=== PATIENT | male | born 1980 | race Caucasian/White ===

== ENCOUNTER 2023-07-12 13:35 | Emergency (ER) | payer OTHER ==
[~2023-07-12] VITALS: Ht 182.9 cm; Wt 90.7 kg
[2023-07-12] MEDS ORDERED: PROPECIA (13:54)
[2023-07-12] MEDS ORDERED: LORAZEPAM 2 MG/1 ML VIAL ONE (14:06)
[2023-07-12] MEDS ORDERED: LORAZEPAM 2 MG/1 ML VIAL IM ONE (14:15)
[2023-07-12 14:54] LABS: BASOPHILS # (AUTO) 0.1 K/UL (0.0-0.2); BASOPHILS % (AUTO) 1.9 % (0.0-2.0); EOSINOPHILS # (AUTO) 0.2 K/uL (0.0-0.7); HEMATOCRIT 41.1 % (36.7-47.1); HEMOGLOBIN 13.9 g/dL (12.5-16.3); LYMPHOCYTES % (AUTO) 17.3 % (20.5-51.5); MEAN CORPUSCULAR HEMOGLOBIN 30.2 uug (23.8-33.4); MEAN CORPUSCULAR HGB CONC 34 g/dL (32.5-36.3); MEAN CORPUSCULAR VOLUME 89.3 fL (73.0-96.2); MONOCYTES # (AUTO) 0.5 K/uL (0.1-1.30); MONOCYTES % (AUTO) 8.9 % (0.0-11.0); NEUTROPHILS # (AUTO) 3.8 K/uL (1.8-8.9); NEUTROPHILS % (AUTO) 67.9 % (38.5-71.5); PLATELET COUNT (AUTO) 195 K/uL (152-348); RED BLOOD CELL COUNT(AUTO) 4.61 MIL/uL (4.06-5.63); RED CELL DISTRIBUTION WIDTH 13.3 % (12.1-16.2); WHITE BLOOD COUNT (AUTO) 5.6 K/uL (3.6-10.2)
[2023-07-12 14:57] LABS: DIFFERENTIAL COMMENT 1
[2023-07-12 15:11] LABS: CALCIUM 9.3 mg/dL (8.5-10.1)
[2023-07-12 15:24] LABS: ALBUMIN 3.6 g/dL (3.4-5.0); BILIRUBIN,DIRECT 0.1 mg/dL (0.0-0.2); BILIRUBIN,TOTAL 0.3 mg/dL (0.2-1.0); TOTAL PROTEIN, SERUM 6.9 g/dL (6.4-8.2)
[2023-07-12] MEDS ORDERED: ALPR0.5T8 PO (15:29)
[2023-07-12 15:35] VITALS: BP 128/80; TEMP 98.3; O2SAT 98
== END 2023-07-12 15:43 | disposition home or self-care (01) ==
LOC: ER 13:35
DX: F41.8 Other specified anxiety disorders (principal); Z79.899 Other long term (current) drug therapy
CPT/HCPCS: 36415; 85025; 93005; A4606; A4663; J2060